=== PATIENT | female | born 1975 | race Two or more races ===

== ENCOUNTER 2016-05-29 12:43 | Day surgery (SDC) | payer OTHER ==
[2016-05-18 09:49] LABS: BASOPHILS 0.7 %; BASOPHILS ABSOLUTE 0.04 10/3/uL (0.0-0.16); EOSINOPHILS 2.2 %; EOSINOPHILS ABSOLUTE 0.13 10/3/uL (0.0-0.53); HEMATOCRIT 33.4 % (36.0-48.0); HEMOGLOBIN 11.5 g/dL (12.0-16.0); LYMPHOCYTES 19.8 %; LYMPHOCYTES ABSOLUTE 1.16 10/3/uL (0.67-4.30); MANUAL DIFF NO %; MEAN CORPUS HGB CONC 34.4 g/dL (32.0-36.0); MEAN CORPUSCULAR HEMOGLOB 30.6 pg (26.0-34.0); MEAN CORPUSCULAR VOLUME 88.8 fL (80-100); MEAN PLATELET VOLUME 8.8 fL (9.2-13.0); MONOCYTES 4.3 %; MONOCYTES ABSOLUTE 0.25 10/3/uL (0.21-1.20); NEUTROPHILS ABSOLUTE 4.27 10/3/uL (2.02-8.40); PLATELET COUNT 174 10/3/uL (150-400); RED CELL COUNT 3.76 10/6/uL (4.0-5.6); WHITE BLOOD CELLS 5.9 10/3/uL (4.5-10.5)
[2016-05-18 09:55] LABS: INTERNATIONAL NORMAL RATI 1.3 UNITS (-); PARTIAL THROMBO TIME 23.9 SEC (22.5-37.2); PROTIME (NOT ORD) 15.7 SEC (12.0-14.5)
[2016-05-18 10:27] LABS: PFA (COL/EPI) 104 SEC (72-180)
--- NOTE | ~2016-05-29 | OP ---
Record Of Operation [facility] [address] [place]. 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 PROCEDURE: Chemo port removal and fat grafting for deformities bilaterally. INDICATIONS AND FINDINGS OF THE PROCEDURE: This middle-aged female is status post a bilateral mastectomy reconstruction, nipple sparing. She has had implant exchanged, an initial fat grafting. She, however, reports with contour abnormalities which are secondary to her breast cancer management technique. She is appropriate for the above-described operative intervention. DETAILS OF THE PROCEDURE: The patient was brought to the operating room, and after adequate sedation was achieved, she was prepped and draped in the usual sterile fashion for the above described procedure. Approximately 150 mL of wetting solution was then injected through excised wounds into the lateral and to a lesser extent medial sites bilaterally. These sites were marked preoperatively. Approximately, 350 mL of fatty aspirate was then removed to REVOLVE apparatus and treated appropriately and transferred into 10 mL syringes. Then, using stab incisions and markings placed preoperatively, a 120 mL was transferred into the right breast and 170 mL into the left breast. The incision was then made over the chemo port. The chemo port was removed. Its pseudo-vascular channel was oversewn and this site was then further grafted. She was then closed with multiple layers of 3-0 Monocryl and 5-0 fast-absorbing gut. Cleansed, dressed with a dry dressing and remanded to the recovery room in stable condition. SPONGE COUNTS: All sponge and needle counts were correct. TAMIKO/INEZ Liliane Willett M.D. / [id number] CC: Liliane Willett M.D.
[~2016-05-29 12:43] MED LIST: ACET500CAP PO; ALEVE220 MG PO; AT25 PO; CUMIN PO; FERROUS SULF325 M1 PO; HERCEPTIN440 MG IV; IBU-200200 MG PO; K500 PO; PERCOCET1 TA2 PO; TAMOXIFEN20 M1 PO; TUMERIC PO; VITAMIN D31000 UNIT PO; [UNRECOGNIZED DRUG - OTHER]; [UNRECOGNIZED DRUG - OTHER] PO
== END 2016-05-29 20:34 | disposition home or self-care (01) ==
LOC: SDC 12:43
PROVIDERS: Surgery Surgery of the Hand
PROC: 0HUV37Z Supplement Bilateral Breast with Autologous Tissue Substitute, Percutaneous Approach (ICD-10-PCS; 2016-05-29)
PROC: 0JPT3XZ Removal of Tunneled Vascular Access Device from Trunk Subcutaneous Tissue and Fascia, Percutaneous Approach (ICD-10-PCS; principal; 2016-05-29 13:45)
DX: N64.89 Other specified disorders of breast (principal); Z90.13 Acquired absence of bilateral breasts and nipples; Z88.5 Allergy status to narcotic agent; Z98.890 Other specified postprocedural states
CPT/HCPCS: 84703; 85025; 85576; 85610; 85730; A9270-GY; J0690; J2250; J2405; J3010